=== PATIENT | male | born 1985 | race Caucasian/White ===

== ENCOUNTER 2016-07-01 14:30 | Inpatient (IN) | payer OTHER ==
[~2016-07-01] VITALS: Ht 167.6 cm; Wt 80.0 kg
--- NOTE | 2016-08-07 14:17 | CONS ---
DATE OF ADMISSION: 08/12/2016 DATE OF CONSULTATION: 08/05/[address] Vargas: Thank you very much for allowing me to participate in the care of Mr. Lynch. HISTORY OF PRESENT ILLNESS: He is a 31-year-old gentleman who is being brought in for an L5-S1 disk ectomy for radiculopathy after having failed all conservative attempts at management. Please note joelle ramsay is also having in addition to his right leg symptoms, some right upper extremity symptoms. PAST MEDICAL HISTORY: 1. Asthma, persistent, moderate. 2. Usual childhood diseases. 3. Allergic rhinitis. 4. Chronic tinnitus. 5. Lumbar disk disease. He has never had surgery before. ALLERGIES: HE HAS NO KNOWN MEDICAL ALLERGIES. MEDICATIONS: 1. Tramadol p.r.n. 2. Albuterol metered dose inhaler which was a single agent he was using on a daily basis. 3. Please note I have given him Dulera in the run up to surgery at 200/5. HABITS: He is a nonsmoker, no alcohol, rare caffeine, no usage of recreational drugs. SOCIAL HISTORY: He was born in [place] and raised there until the age of 14, then in the [facility]. He has a 10th grade education without experience. He had previously worked in [employer], but is disabled. He is and lives with his spouse and his in-laws. FAMILY HISTORY: Negative for coronary artery disease, negative for diabetes, negative for hypertens ion, negative for stroke. Negative for asthma, negative for glaucoma, negative for migraine, negati ve for colon cancer, negative for prostate cancer, negative for anesthesia reactions, negative for h ematological disturbances. REVIEW OF SYSTEMS: HEAD AND EYES: Fully negative. ENT: Notable for rhinitis and otherwise negative. RESPIRATORY: Notable for a chronic cough with nocturnal awakening and otherwise negative. CARDIAC: Negative. GASTROINTESTINAL: The patient reports being told of negative hepatitis serologies. HEMATOLOGIC: Negative. UROLOGIC: Negative. MUSCULOSKELETAL: Notable for the right leg sciatica, but he also has some right upper extremity sym ptoms which are suggestive of carpal tunnel syndrome. NEUROLOGIC: Negative. GENERAL: Without note. PHYSICAL EXAMINATION: VITAL SIGNS: At the time of physical exam, he has a height of 5 feet 5 inches, weight 185, blood pr essure 130/68, pulse 72, temperature is 98.3, respirations are 18. HEENT: NC/AT; PERRL, EOMI, anicteric, fundi are without note; tympanic membranes were without note; oropharynx demonstrates no lesions. NECK: Supple. There is a midline trachea. There is no thyromegaly; pulses are 2+ without bruits. RESPIRATORY: Clear to auscultation and percussion, but on forced maneuver, he does have some scant wheezing. CARDIAC: Demonstrates no JVD, a regular rate and rhythm without rubs, murmurs or gallops. ABDOMEN: Soft, nontender, active bowel sounds, no hepatosplenomegaly, no CVA tenderness, no hernias , no bruits. EXTREMITIES: Demonstrate no clubbing, cyanosis or edema. For a full evaluation of the extremities, please see the dictation of Dr. Vargas including the upper extremities. NEUROLOGIC: Nonfocal. LABORATORY DATA: White count 6.5, hemoglobin 14.9, hematocrit 43.4, platelet count 282. Pro time 1 1.4 with an INR of 0.97. PTT is 29 seconds. Urinalysis 1.030, pH of 6, dipsticks negative. Sodium 144, potassium 4.8, chloride 107, bicarbonate 27, BUN 14, creatinine 0.9, random blood sugar postpr andial 106. Chest x-ray demonstrates adequate technique, normal cardiac size and silhouette. Normal bones and s oft tissues and specifically no auxiliary rib, normal lungs without evidence of TB. EKG demonstrate s sinus rhythm at 66 with intervals of 0.13, 0.09, 0.38, axis of 60 degrees and normal morphology. ASSESSMENT AND PLAN: Preoperative medical consultation prior to elective L5-S1 diskectomy. At this time, I find Mr. Lynch to be an acceptable surgical candidate and concur with your plans to proc eed with surgery. He is at average surgical risk as compared to his age-matched peers and should do well using all standard and routine anesthesia precautions. By Hamilton's risk classification, he i s a low cardiac risk for surgery. Respectively yours, Dictated By: DUGLAS FORRESTER MD JR/NTS Conf#: [id number] DID#: [id number] CC: POP VARGAS MD;*EndCC*
[2016-08-12] VITALS (24 sets, daily range): BP systolic 115–142; BP diastolic 52–78; PULSE 68–110; RESP 15–21; Ht 167.6 cm; Wt 80.0 kg
[2016-08-12] MEDS ORDERED: ROCURONIUM 50 MG INJ ONE (07:00)
[2016-08-12] MEDS ORDERED: SUCCINYLCHOLINE CHLORIDE 100 MG/5 ML SYG IV ONE (08:49)
[2016-08-12] MEDS ORDERED: LIDOCAINE 2% (SDV) 5 ML INJ ONE (08:49)
[2016-08-12] MEDS ORDERED: PROPOFOL 20 ML ONE ×2 (08:49→12:47)
[2016-08-12] MEDS ORDERED: FENTAnyl 50 MCG/ML VIAL ONE ×2 (08:50→14:35)
[2016-08-12] MEDS ORDERED: MIDAZOLAM 1 MG/ML 2 ML INJ ONE (08:50)
[2016-08-12] MEDS ORDERED: OCULAR LUBRICANT 3.5 GM OPH OINT ONE (08:53)
[2016-08-12] MEDS ORDERED: CEFAZOLIN 1 GM INJ ONE (08:57)
[2016-08-12] MEDS ORDERED: CA CHLORIDE 10% 10 ML SYRINGE ONE (11:19)
[2016-08-12] MEDS ORDERED: GELATIN SIZE 100 SPONGE ONE (11:19)
[2016-08-12] MEDS ORDERED: BUPIVACAINE 0.25%/EPI (SDV) 30 ML INJ ONE (11:19)
[2016-08-12] MEDS ORDERED: SURGIFOAM POWDER 1 GM KIT ONE (11:19)
[2016-08-12] MEDS ORDERED: POLYMYXIN/BACITRACIN 1L IRRIG ONE (11:20)
[2016-08-12] MEDS ORDERED: THROMBIN 5000 UNIT VIAL ONE (11:20)
[2016-08-12] MEDS ORDERED: inhaler (12:23)
[2016-08-12] MEDS ORDERED: ONDANSETRON 4 MG INJ ONE (12:54)
[2016-08-12] MEDS ORDERED: DEXAMETHASONE 4 MG/ML 1 ML INJ ONE (12:54)
[2016-08-12] MEDS ORDERED: LACTATED RINGER'S 1L BAG IV* SCH (13:00)
[2016-08-12] MEDS ORDERED: CEFAZOLIN 2 GM/50 ML (PMX) 50 ML IVPB SCH (13:00)
[2016-08-12] MEDS ORDERED: DIPHENHYDRAMINE 50 MG INJ IV PRN ×2 (13:30→15:30)
[2016-08-12] MEDS ORDERED: ONDANSETRON 4 MG INJ IV PRN ×2 (13:30→15:30)
[2016-08-12] MEDS ORDERED: PROCHLORPERAZINE 10 MG INJ IV PRN (13:30)
[2016-08-12] MEDS ORDERED: MEPERIDINE 25 MG INJ IV PRN (13:30)
[2016-08-12] MEDS ORDERED: HYDROmorphONE (0.2 MG/ML) 10ML SYG IV PRN ×2 (13:30)
[2016-08-12] MEDS ORDERED: OXYCODONE/ACETAMINOPHEN (5/325) TAB PO PRN ×2 (13:30)
[2016-08-12] MEDS ORDERED: FENTAnyl 50 MCG/ML VIAL IV PRN (13:30)
[2016-08-12] MEDS ORDERED: METOCLOPRAMIDE 10 MG INJ IV PRN (13:30)
[2016-08-12] MEDS ORDERED: HYDROmorphONE 2 MG/ML SYG ONE (13:30)
[2016-08-12] MEDS ORDERED: BUPIVACAINE 0.25% (MPF) 10 ML 10 ML VIAL ONE (14:35)
[2016-08-12] MEDS ORDERED: NEOSTIGMINE 3 MG/3 ML SYRINGE ONE (14:43)
[2016-08-12] MEDS ORDERED: GLYCOPYRROLATE 1 MG INJ ONE (14:43)
[2016-08-12] MEDS: D5W-0.45 NACL + KCL 20 MEQ 1,000 ML IV SCH ×2 (15:07→17:46)
--- NOTE | 2016-08-12 15:10 | RADRPT ---
PROCEDURE: Lumbar spine study CLINICAL INDICATION: Intraoperative evaluation TECHNIQUE: 8 images were obtained of the lumbar spine. A total of 17.9 seconds of fluoroscopic ti me was utilized. COMPARISON: None FINDINGS: The composite demonstrates localization of the L4-5 disk level and subsequent placement of posterior L4-5 fixation. Bony detail is suboptimal. There is no malalignment. IMPRESSION: Intraoperative images as above. RPTAT:AAJJ Physician Sheela Date Time Electronically viewed and signed by Physician Sheela on 08/12/2016 15:09 BM/
[2016-08-12] MEDS ORDERED: BISACODYL 10 MG SUPP PR PRN (15:30)
[2016-08-12] MEDS ORDERED: ACETAMINOPHEN 325 MG TAB PO PRN (15:30)
[2016-08-12] MEDS ORDERED: ZOLPIDEM 5 MG TAB PO PRN (15:30)
[2016-08-12] MEDS ORDERED: CEPASTAT LOZENGE MT PRN (15:30)
[2016-08-12] MEDS ORDERED: HYDROmorphONE 1 MG/ML SYG IV PRN (15:30)
[2016-08-12] MEDS ORDERED: HYDROmorphONE 0.2 MG/ML PCA IV SCH (15:30)
[2016-08-12] MEDS ORDERED: NALOXONE (0.4 MG/ML) INJ IV PRN (15:30)
[2016-08-12] MEDS ORDERED: AL HYDROX/MG HYDROX/SIMETH 30 ML CUP PO PRN (15:30)
--- NOTE | 2016-08-12 16:11 | PN ---
Date/Time of Note Date/Time of Note DATE: 08/12/16 TIME: 16:08 Assessment/Plan VTE Prophylaxis VTE Prophylaxis Intervention: anti-embolic stocking (post lami) Lines/Catheters IV Catheter Type (from Nrsg): Saline Lock Subjective 24 Hr Interval Summary Free Text/Dictation 31 yr old man seen in recovery post lami and disc decompression pt is awake, says leg, back feel ok at this point no chan vs are normal lungs are clear garcia ate is regular abd soft moves all four Exam/Review of Systems Vital Signs Vitals Vital Signs Date Time Temp Pulse Resp B/P Pulse Ox O2 Delivery O2 Flow Rate FiO2 08/12/16 15:40 90 17 120/58 100 08/12/16 15:18 97.9 Medications Medications Current Medications Potassium Chloride/Dextrose/ Sod Cl (D5-1/2ns + KCl 20 Meq) 1,000 ml @ 100 mls/ hr Q10H IV ; Start 08/12/16 at 15:07 Acetaminophen/ Hydrocodone Bitart ([place] (10/325)) 1 tab Q4H PRN PO PAIN LEVEL 1-5; Start 08/13/16 at 10:00 Acetaminophen/ Hydrocodone Bitart ([place] (10/325)) 2 tab Q4H PRN PO PAIN LEVEL 6-10; Start 08/13/16 at 10:00 Hydromorphone HCl 0.2 mg 0.2 mg Q1H PRN IV BREAKTHROUGH PAIN; Start 08/12/16 at 15:30 Cefazolin Sodium (Ancef 1 Gm/50 ml (Pmx)) 50 ml @ 100 mls/hr Q8H IVPB ; Start 08/12/16 at 16:30; Stop 08/13/16 at 08:59 Ondansetron HCl (Zofran Inj) 4 mg Q6H PRN IV NAUSEA AND/OR VOMITING; Start at 15:30 Bisacodyl (Dulcolax Supp) 10 mg DAILY PRN [place] CONSTIPATION; Start 08/12/16 at 15 :30 Docusate Sodium (Colace) 100 mg BID PO ; Start 08/12/16 at 21:00 Al Hydrox/Mg Hydrox/Simethicone (Mag-Al Plus) 15 ml Q6H PRN PO CONSTIPATION/ DYSPEPSIA; Start 08/12/16 at 15:30 Acetaminophen (Tylenol Tab) 650 mg Q4H PRN PO MARKHAM OR TEMP GREATER THAN 101.3F; Start 08/12/16 at 15:30 Carisoprodol (Soma) 350 mg TID PRN PO MUSCLE SPASMS; Start 08/12/16 at 15:30 Phenol (Cepastat Lozenge) 1 lozenge PRN PRN MT SORE THROAT; Start 08/12/16 at 15:30 Diphenhydramine HCl (Benadryl) 25 mg Q6H PRN IV ITCHING; Start 08/12/16 at 15: 30 Naloxone HCl (Narcan) 0.2 mg Q2M PRN IV RR 8 BREATHS/MIN OR LESS; Start at 15:30 Hydromorphone HCl (Dilaudid SYSTEMS INTEGRATION ANALYST) SYSTEMS INTEGRATION ANALYST to be started in PACU Q4PCA IV Last administered on 08/12/16t 15:31; Admin Dose 6 MG; Start 08/12/16 at 15:30; Stop 08/13/16 at 10:00 Miscellaneous Information 1. Hold SYSTEMS INTEGRATION ANALYST at 1,000... SYSTEMS INTEGRATION ANALYST IV ; Start 08/12/16 at 15: 30; Stop 08/13/16 at 10:00 PIERRE DIGGS MD Aug 12, 2016 16:11
--- NOTE | 2016-08-12 17:17 | OPR ---
DATE OF OPERATION: 08/12/2016 PREOPERATIVE DIAGNOSES: 1. Left L4-5 stenosis. 2. Left L5-S1 disk herniation. 3. Right L4-L5 disk herniation. 4. Lumbosacral radiculopathy. 5. Facet mediated back pain. POSTOPERATIVE DIAGNOSES: 1. L4-5 stenosis. 2. Left L5-S1 disk herniation. 3. Right L4-L5 disk herniation. 4. Lumbosacral radiculopathy. 5. Facet mediated back pain. PROCEDURE: 1. Central decompressive laminectomy at L4-L5 for stenosis with decompression of L4 and L5 nerve ro ots. 2. Left L5-S1 microdiskectomy. 3. Right L4-L5 microdiskectomy. 4. Use of C-arm fluoroscopy with interpretation without radiologist present. 5. Placement of posterior interlaminar stabilization device (Coflex). 6. Use of operative microscope. 7. Epidural injection via catheter. IMPLANTS: 14 mm Coflex. PRIMARY SURGEON: Tc Vargas MD FLIGHT SERVICE SPECIALIST: Alicia Gorman PA-C NEED FOR PIPELAYER: During this spinal surgical procedure, my day care assistant was used to retrac t and protect the spinal nerves and dural sac. My day care assistant also employed the suction catheters to evacuate blood from the surgical field to improve visualization of the neural structures. The rocky tant was medically necessary to facilitate the completion of the surgery in a safe and expeditious mary beth. State of [place] regulations, as well as hospital bylaws, preclude the use of non-license d health care personnel, such as operating room technicians, to perform these functions. FINDINGS: Neuromonitoring at the end of the case revealed left L5 amplitude down 40%, right S1 ampl itude down 30%. At the end of the case, nerve signals returned to normal. The patient had stenosis with herniations at L4-5 and L5-S1. ESTIMATED BLOOD LOSS: 40 mL. DRAINS: None. SPECIMENS: L4-5 and L5-S1 disk was sent to Pathology. COMPLICATIONS OF PROCEDURES: None. ANESTHESIOLOGIST: Kanika Ceja MD TYPE OF ANESTHESIA: General. INDICATIONS FOR PROCEDURE: This is a 31-year-old gentleman with back and lumbosacral radiculopathy. He also has radiculopathy in addition to the chronic back pain. He has failed nonoperative measur es; therefore, I recommended proceeding with the above-mentioned surgery. Preoperatively, we discus sed risks, benefits, and alternatives. He understood and wished to proceed. DESCRIPTION OF PROCEDURE IN DETAIL: The patient was identified in the preoperative holding area, christian perez, taken to the operating room, where he was successfully placed under general an esthesia. Neuromonitoring leads were placed, sequential compressive devices were applied. Neuromon itoring was utilized during the procedure for 2 hours to include SSEP, MEP, and EMG. This was perfo rmed by [employer] Start time was 1 p.m., closure time was 3:00 p.m. The patient was placed on the operating room table in prone position over a Tenzin frame. Incision site anesthetized with Marcaine and epinephrine. Incision was then made over the L4-5 and L5-S1 levels. I subperiosteall y dissected the L4 and L5 lamina. I placed Kerrison's under the laminar and took a lateral film to confirm the correct levels. Next, microscope was brought in and a central decompression was perfor med at the L4-5 level leaving the superior spinous process and lamina intact. Ligamentum flavum was then sharply dissected. I decompressed the L4 and L5 nerve roots bilaterally. This was done for s tenosis. I then made a left-sided hemilaminotomy at L5-S1. I removed the ligamentum flavum. Next, my day care assistant retracted the nerve root medially and I performed a microdiskectomy on the left at L5- S1. I then turned to the right side at L4-5 and I made an annulotomy followed by a microdiskectomy here to further alleviate the stenosis. Once the decompression was completed all nerve signals retu rned to normal. Due to the patient's facet pain we then prepared the area for the Coflex device. I placed various trials and chose the appropriate height and then I placed the interlaminar stabiliza tion device at the L4-5 level, crimping onto the spinous processes. I confirmed the placement using the C-arm fluoroscope. Once this was done, microscope was taken off the field. I irrigated the wo und copiously. Valsalva maneuver was performed and there was no leak of CSF. Hemostasis achieved w ith bipolar cautery and Surgifoam. The wound was irrigated again. Epidural catheter was passed thr ough which I injected 100 mcg of fentanyl with 2 mL of Marcaine 0.25% preservative-free, and the cat heter was pulled. I then had anesthesiologist draw peripheral blood and then took the platelet-poor plasma and mixed this with thrombin and injected this over the dura for hemostatic purposes. After it had run through the Magellan device. Retraction removed and I closed the deep fascia with #1 St ratafix suture. I closed the subcutaneous tissue with 2-0 Vicryl stitch. A 4-0 Monocryl closure wa s then performed. Dermabond was then applied. All nerve signals returned to normal. Next, the pat ient was then awakened from anesthesia and taken to recovery room in stable condition. Lap, sponge, and instrument counts were correct x2. There were no apparent complications during the procedure. The patient will be admitted to the orthopedic lepe for routine postoperative care to include pain c ontrol, neurovascular checks, antibiotics, and physical therapy. Dictated By: TC LARA/LIZZ Conf#: [id number] DID#: [id number]
[2016-08-12] MEDS: CEFAZOLIN 1 GM/50 ML (PMX) 50 ML IVPB SCH (17:46)
[2016-08-12] MEDS: DOCUSATE SODIUM 100 MG CAP PO SCH (21:40)
[2016-08-13] MEDS: CEFAZOLIN 1 GM/50 ML (PMX) 50 ML IVPB SCH ×2 (00:01→09:10)
[2016-08-13 00:05] VITALS: BP 120/61; PULSE 95; RESP 18
[2016-08-13] MEDS: D5W-0.45 NACL + KCL 20 MEQ 1,000 ML IV SCH ×3 (04:31→21:07)
[2016-08-13 05:46] LABS: POTASSIUM 4.2 mmol/L (3.5-5.1)
[2016-08-13 05:49] LABS: CREATININE 0.69 mg/dl (0.61-1.24)
[2016-08-13 05:50] LABS: CALCIUM 8.5 mg/dl (8.4-10.2); MAGNESIUM 1.8 mg/dl (1.7-2.5)
[2016-08-13 05:55] LABS: HEMOGLOBIN 13.8 g/dl (14.0-18.0); LYMPHOCYTES # 0.9 10^3/ul (0.8-2.9); LYMPHOCYTES % 4.8 % (15.0-51.0); MEAN CORPUSCULAR HEMOGLOBIN 28.6 pg (29.0-33.0); MEAN CORPUSCULAR HGB CONC 34.4 g/dl (32.0-37.0); MEAN CORPUSCULAR VOLUME 83.2 fl (82.0-101.0); MEAN PLATELET VOLUME 7.6 fl (7.4-10.4); MONOCYTE # 0.7 10^3/ul (0.3-0.9); MONOCYTES % 3.8 % (0.0-11.0); NEUTROPHIL # 16.5 10^3/ul (1.6-7.5); NEUTROPHILS % 91.4 % (39.0-77.0); PLATELET COUNT 325 10^3/UL (140-440); RED BLOOD COUNT 4.81 10^6/ul (4.70-6.10); RED CELL DISTRIBUTION WIDTH 13.1 % (11.5-14.5)
[2016-08-13 06:06] LABS: CONDITION 1; LH ANALYZER COMMENTS 1
[2016-08-13 06:21] VITALS: BP 103/55; PULSE 97; RESP 18
[2016-08-13 08:18] VITALS: BP 121/65; RESP 20
[2016-08-13] MEDS: DOCUSATE SODIUM 100 MG CAP PO SCH ×2 (09:11→21:26)
[2016-08-13] MEDS ORDERED: HYDROCODONE/APAP (10/325) TAB PO PRN (10:00)
[2016-08-13] MEDS: HYDROCODONE/APAP (10/325) TAB PO PRN ×2 (11:51→15:57)
[2016-08-13] MEDS: CARISOPRODOL 350 MG TAB PO PRN (12:50)
--- NOTE | 2016-08-13 13:11 | PN ---
Date/Time of Note Date/Time of Note DATE: 08/13/16 TIME: 13:10 Assessment/Plan Lines/Catheters IV Catheter Type (from Nrsg): Peripheral IV You in Place (from Nrsg): No (DUE TO VOID) Assessment/Plan Assessment/Plan Status post lumbar decompression. Patient is not yet cleared for physical therapy. We will reevaluate him in the morning Subjective 24 Hr Interval Summary Complains of low back pain Exam/Review of Systems Vital Signs Vitals Vital Signs Date Time Temp Pulse Resp B/P Pulse Ox O2 Delivery O2 Flow Rate FiO2 08/13/16 08:18 98.1 95 20 121/65 95 08/13/16 06:21 Room Air Intake and Output 08/12/16 08/12/16 08/13/16 15:00 23:00 07:00 Intake Total 750 ml 0 ml 1350 ml Output Total 20 ml 500 ml Balance 750 ml -20 ml 850 ml Exam Free Text/Dictation Neurovascularly intact Results Result Diagram: 08/13/16 0455 08/13/16 0455 POP NGUYEN MD Aug 13, 2016 13:11
[2016-08-13 19:23] VITALS: BP 117/64; RESP 18
[2016-08-14] MEDS: HYDROCODONE/APAP (10/325) TAB PO PRN ×3 (02:43→14:37)
[2016-08-14] MEDS: D5W-0.45 NACL + KCL 20 MEQ 1,000 ML IV SCH (07:07)
[2016-08-14 08:20] VITALS: BP 115/64; RESP 20
[2016-08-14] MEDS: DOCUSATE SODIUM 100 MG CAP PO SCH (09:27)
[2016-08-14] MEDS ORDERED: KETOROLAC 30 MG INJ IV STA (09:54)
--- NOTE | 2016-08-14 11:06 | DS ---
DATE OF ADMISSION: 08/12/2016 DATE OF DISCHARGE: 08/14/2016 ADMITTING DIAGNOSIS: Spinal stenosis. DISCHARGE DIAGNOSIS: Spinal stenosis. PROCEDURE: The patient taken to the operating room on August 12 and underwent lumbar decompressio n with placement of Coflex. HOSPITAL COURSE: The patient was admitted to the orthopedic lepe after undergoing the above proced ure. His postoperative course was uncomplicated. By postoperative day 2, he was deemed stable for discharge with followup arranged with the undersigned. Dictated By: PPO LARA/LIZZ Conf#: [id number] DID#: [id number]
[2016-08-14] MEDS: CARISOPRODOL 350 MG TAB PO PRN (12:17)
== END 2016-08-14 16:45 | disposition home or self-care (01) | DRG 518 ==
LOC: REC 08-12 10:47 → MS1 08-12 16:15
PROVIDERS: ADMIT Specialist; ATTEND Specialist
PROC: 0SH30BZ Insertion of Interspinous Process Spinal Stabilization Device into Lumbosacral Joint, Open Approach (ICD-10-PCS; 2016-08-12)
PROC: 01NB0ZZ Release Lumbar Nerve, Open Approach (ICD-10-PCS; 2016-08-12)
PROC: 0SB40ZZ Excision of Lumbosacral Disc, Open Approach (ICD-10-PCS; principal; 2016-08-12 12:00)
DX: M51.17 Intervertebral disc disorders with radiculopathy, lumbosacral region (principal); M48.06 Spinal stenosis, lumbar region
CPT/HCPCS: 72110; 80048; 83735; 85025; 86999; 97116; 97162; 97530; J0330; J0690; J1100; J1170; J1885; J2250; J2405; J2710; J3010; J3480

== ENCOUNTER 2016-08-26 10:16 | Emergency (ER) | payer SELFPAY ==
[~2016-08-26] VITALS: Wt 81.0 kg
[~2016-08-26 10:16] MED LIST: inhaler
--- NOTE | 2016-08-26 12:09 | RADRPT ---
PROCEDURE: Bilateral lower extremity Doppler CLINICAL INDICATION: Bilateral leg pain TECHNIQUE: Whitaker scale, color, and pulse wave Doppler examination of the veins of both lower extrem ities was performed with a high frequency linear transducer. The images were reviewed on a PACS wor kstation. COMPARISON: None. FINDINGS: There is no evidence for deep venous thrombosis of either lower extremity. The deep veins were full y compressible and normal augmentation was seen. No Saravia's cyst was seen. No definite calf vein th rombus. IMPRESSION: No definite evidence for deep venous thrombosis of either lower extremity. RPTAT: HLBE Physician Adonis Date Time Electronically viewed and signed by Tori Spencer Physician on 08/26/2016 12:09 LE/
--- NOTE | 2016-08-26 12:20 | ERD ---
ER Documentation Chief Complaint Date/Time DATE: 08/26/16 TIME: 12:18 Chief Complaint non taumatic r leg pain for 3 days. no recent trauma noted. [facility] for [facility] HPI History of multiple antibiotic calf pain over the last 3 days. History is significant for lumbar spine surgery at [facility] 2 weeks ago. He has no fevers, shortness of breath. His right leg feels worse in his left leg. Denies significant swelling and notable redness. ROS All systems reviewed and are negative except as per history of present illness. Medications Home Meds Reported Medications [inhaler] No Conflict Check 08/12/16 Allergies Allergies: Coded Allergies: No Known Allergy (Unverified , 08/26/16) PMhx/Soc History of Surgery: No Anesthesia Reaction: No Hx Neurological Disorder: No Hx Respiratory Disorders: No Hx Cardiac Disorders: No Hx Psychiatric Problems: No Hx Miscellaneous Medical Probl: Yes (asthma, allergic rhinitis, chronic tinnitus) Hx Alcohol Use: No Hx Substance Use: No Hx Tobacco Use: No Smoking Status: Never smoker Physical Exam Vitals Vital Signs Date Time Temp Pulse Resp B/P Pulse Ox O2 Delivery O2 Flow Rate FiO2 08/26/16 10:17 98.8 80 20 136/71 99 Physical Exam Const: [] Alert, [id number]. Head: Atraumatic Eyes: Normal Conjunctiva ENT: Normal External Ears, Nose and Mouth. Neck: Full range of motion..~ No meningismus. Resp: Clear to auscultation bilaterally Cardio: Regular rate and rhythm, no murmurs Abd: Soft, non tender, non distended. Normal bowel sounds Skin: No petechiae or rashes Back: No midline or flank tenderness Ext: No cyanosis, or edema. Minimal right calf pain or tenderness. Minimal left calf tenderness less than right. No erythema, edema restricted range of motion or weakness. Neur: Awake and alert Psych: Normal Mood and Affect Procedures/MDM The request of Dr. Novak. Bilateral lower extremity Doppler was performed which is negative for DVT. Results were faxed to Dr. NOVAK office. Patient will be discharged home with a specialist and primary artifact follow- up in 6 to recheck for new or worsening symptoms as directed in the aftercare instructions. Departure Diagnosis: Primary Impression: Bilateral leg pain Condition: Stable Patient Instructions: Possible Causes of Low Back or Leg Pain Additional Instructions: no blood clots seen on ultrasound today. Follow-up with surgeon as scheduled or return for new or worsening symptoms KWAKU MYLES MD Aug 26, 2016 12:20
== END 2016-08-26 12:30 | disposition home or self-care (01) ==
LOC: FTE 10:16
DX: M79.604 Pain in right leg (principal); M79.605 Pain in left leg; J45.909 Unspecified asthma, uncomplicated
CPT/HCPCS: 93970